=== PATIENT | female | born 1980 | race American Indian/Alaskan Native ===

== ENCOUNTER 2017-01-30 05:58 | Emergency (ER) | payer MEDICARE, MEDICAID ==
[2017-01-30 05:58] VITALS: BMI 74.9
[2017-01-30 06:27] VITALS: O2SAT 100
--- NOTE | 2017-01-30 06:56 | ED PDOC ---
HPI: General Adult Time Seen by Provider: 01/30/17 06:31 Chief Complaint (Nursing): Abdominal Pain Chief Complaint (Provider): abd pain, vaginal bleeding, fever, chills, sore throat History Per: Patient History/Exam Limitations: no limitations Onset/Duration Of Symptoms: Days Have you had recent travel within the past 21 days to any of the following countries: [place], [place], [place] or [place]?: No Current Symptoms Are (Timing): Still Present Additional Complaint(s): 36yo morbidly obese female presents to the ED for evaluation of abdominal pain, vaginal bleeding, fever, chills, sore throat for the past week. Patient is on depo shot as prescribed by party plan dealer at [place]. States bleeding has been so severe she has had to use towels to wipe up blood. Notes occasional lightheadedness. PCP: Veronica Past Medical History Reviewed: Historical Data, Nursing Documentation, Vital Signs Vital Signs: Last Vital Signs Temp 100.3 F H 01/30/17 13:16 Pulse 92 H 01/30/17 13:16 Resp 18 01/30/17 13:16 BP 107/54 L 01/30/17 13:16 Pulse Ox 100 01/30/17 13:16 - Medical History PMH: Diabetes, HTN, Hypercholesterolemia - Surgical History Surgical History: No Surg Hx - Family History Family History: States: Diabetes - Home Medications Home Medications: Ambulatory Orders Medication Instructions Recorded Ranitidine HCl [Zantac] 1 tab PO BID #40 tablet 07/12/16 Ibuprofen [Motrin] 600 mg PO Q8 PRN #21 tab 08/18/16 Ondansetron ODT [Zofran ODT] 4 mg PO Q8 PRN #12 odt 08/29/16 Aluminum Hydroxide/Magnesium H 30 ml PO Q8 #1 bottle 10/13/16 [Maalox 30 ml] Famotidine [Pepcid] 10 mg PO BID PRN #30 tab 10/13/16 Ondansetron ODT [Zofran ODT] 4 mg PO Q6 #14 odt 10/13/16 Ondansetron [Zofran] 4 mg PO Q8H #10 tab 10/17/16 Pantoprazole Sodium [Protonix] 40 mg PO DAILY #30 tablet. 10/17/16 Ferrous Sulfate [Feosol] 325 mg PO BID #21 tab 11/16/16 Hydrocortisone 1% Oint [Cortizone 30 applic TOP BID #1 tube 11/16/16 1% Oint] Ranitidine HCl [Zantac] 150 mg PO BID #20 tablet 11/16/16 Famotidine [Pepcid] 20 mg PO DAILY PRN #6 tab 01/30/17 - Allergies Allergies/Adverse Reactions: Allergies Allergy/AdvReac Type Severity Reaction Status Date / Time No Known Allergies Allergy Verified 08/29/16 19:14 Review of Systems ROS Statement: Except As Marked, All Systems Reviewed And Found Negative Constitutional: Positive for: Fever, Chills, Other (lightheadedness ) ENT: Positive for: Throat Pain Gastrointestinal: Positive for: Abdominal Pain Genitourinary Female: Positive for: Vaginal Bleeding Physical Exam - Reviewed Nursing Documentation Reviewed: Yes Vital Signs Reviewed: Yes - Physical Exam Appears: Positive for: No Acute Distress (morbidly obese ) Head Exam: Positive for: ATRAUMATIC, NORMAL INSPECTION, NORMOCEPHALIC Skin: Positive for: Normal Color, Warm, Dry Eye Exam: Positive for: EOMI, PERRL, Other (mild conjunctival pallor ) ENT: Positive for: Normal ENT Inspection Neck: Positive for: Normal, Painless ROM, Supple Cardiovascular/Chest: Positive for: Regular Rate, Rhythm. Negative for: Murmur , Tachycardia Respiratory: Positive for: Normal Breath Sounds. Negative for: Wheezing, Respiratory Distress Gastrointestinal/Abdominal: Positive for: Normal Exam, Bowel Sounds, Soft. Negative for: Tenderness Back: Positive for: Normal Inspection. Negative for: L CVA Tenderness, R CVA Tenderness Extremity: Positive for: Normal ROM. Negative for: Deformity, Swelling Neurologic/Psych: Positive for: Alert, Oriented - Laboratory Results Result Diagrams: 01/30/17 07:00 01/30/17 09:15 - ECG O2 Sat by Pulse Oximetry: 100 Pulse Ox Interpretation: Normal (RA) Medical Decision Making Medical Decision Makin: Impression: dysfunctional uterine bleeding with URI symptoms Plan: VBG Labs CXR flu swab US transvaginal reassess Patient s/o to Dr. Bridges at 0700 pending CXR, labs, US. Scribe Attestation: Documented by Arcadio Cabrera acting as a scribe for Jaden Rob MD. Provider Scribe Attestation: All medical record entries made by the Scribe were at my direction and personally dictated by me. I have reviewed the chart and agree that the record accurately reflects my personal performance of the history, physical exam, medical decision making, and the department course for this patient. I have also personally directed, reviewed, and agree with the discharge instructions and disposition. Disposition - Clinical Impression Clinical Impression: Vaginal bleeding, URI, acute - Patient ED Disposition Is Patient to be Admitted: Transfer of Care - Disposition Referrals: [facility] [Outside] - 01/31/17 Disposition: Transfer of Care Disposition Time: 07:00 Condition: STABLE Additional Instructions: Return if not better in 3 days. Prescriptions: Famotidine [Pepcid] 20 mg PO DAILY PRN #6 tab PRN Reason: Pain Instructions: Dysfunctional Uterine Bleeding (ED), Upper Respiratory Infection (ED) Forms: [facility] ED School/Work Excuse Patient Signed Over To: Matthew Bridges Handoff Comments: pending CXR, labs, US
--- NOTE | 2017-01-30 07:31 | ED PDOC ---
- Laboratory Results Result Diagrams: 01/30/17 07:00 01/30/17 09:15 - ECG O2 Sat by Pulse Oximetry: 100 (RA) Pulse Ox Interpretation: Normal - Radiology X-Ray: Interpreted by Me X-Ray Interpretation: No Acute Disease - CT Scan/US US Other Rad Studies (CT/US): Radiology Report Reviewed Other Rad Interpretation: no acute - Progress ED Course And Treament: 905: Stable. AAOx3. Breathing well. Tolerated PO. Pain stable. Hg stable. Pt. K hemolyzed. Pending repeat. \ 950: Stable. AAOx3. Pain free. Fu with pcp. Medical Decision Making Medical Decision Makin signed over to me by Arcadio Rob MD pending US, Labs, reassessment. Disposition - Clinical Impression Clinical Impression: Vaginal bleeding, URI, acute - POA Present On Arrival: None - Disposition Referrals: [facility] [Outside] - 01/31/17 Disposition: Routine/Home Disposition Time: 09:57 Condition: STABLE Additional Instructions: Return if not better in 3 days. Instructions: Upper Respiratory Infection (ED), Dysfunctional Uterine Bleeding (ED) Forms: [facility] ED School/Work Excuse Additional Comments - Additional Comments Additional Comments: Scribe Attestation: Documented by Deniz Hudson acting as a scribe for Avery Bridges MD. Provider Scribe Attestation: All medical record entries made by the Scribe were at my direction and personally dictated by me. I have reviewed the chart and agree that the record accurately reflects my personal performance of the history, physical exam, medical decision making, and the department course for this patient. I have also personally directed, reviewed, and agree with the discharge instructions and disposition.
[2017-01-30 07:38] LABS: BASO % 0.5 % (0.0-2.0); EOS % 0.2 % (0.0-4.0); HEMATOCRIT 32.9 % (34.0-47.0); LYMPH # 0.9 K/uL (1.0-4.3); LYMPH % 12.2 % (20.0-40.0); MEAN CELL VOLUME 76.3 fl (81.0-99.0); MEAN CORPUSCULAR HEMOGLOBIN 24.5 pg (27.0-31.0); MEAN CORPUSCULAR HGB CONC 32.1 g/dL (33.0-37.0); MEAN PLATELET VOLUME 8.9 fl (7.2-11.7); MONO # 0.8 K/uL (0.0-0.8); MONO % 10.7 % (0.0-10.0); NEUT # 5.7 K/uL (1.8-7.0); NEUT % 76.4 % (50.0-75.0); RED CELL DISTRIBUTION WIDTH 19.7 % (11.5-14.5); WHITE BLOOD COUNT 7.5 K/uL (4.8-10.8)
[2017-01-30 07:49] LABS: RBC URINE 576 /hpf (0-3); URINE BACTERIA OCC (<OCC); URINE BILIRUBIN NEGATIVE (NEGATIVE); URINE BLOOD LARGE (NEGATIVE); URINE COLOR YELLOW (YELLOW); URINE GLUCOSE (UA) NEG (Normal); URINE KETONE 20 mg/dL (NEGATIVE); URINE LEUKOCYTE ESTERASE NEG Leu/uL (Negative); URINE PROTEIN 30 mg/dL (NEGATIVE); URINE UROBILINOGEN 0.2-1.0 mg/dL (0.2-1.0); WBC URINE 16 /hpf (0-5)
[2017-01-30 08:11] LABS: ALB/GLOB RATIO 0.8 (1.0-2.1); ALKALINE PHOSPHATASE 62 U/L (38-126); ALT/SGPT 28 U/L (9-52); AST/SGOT 48 U/L (14-36); BILIRUBIN,TOTAL 0.8 mg/dl (0.2-1.3); BLOOD UREA NITROGEN 13 mg/dl (7-17); CALCIUM 9.1 mg/dL (8.4-10.2); CARBON DIOXIDE 22 mmol/L (22-30); CHLORIDE 102 mmol/L (98-107); GFR AFRICAN-AMERICAN > 60; GLUCOSE,RANDOM 112 mg/dL (65-105); POTASSIUM 5.5 MMOL/L (3.6-5.0); SODIUM 141 mmol/l (132-148); TOTAL PROTEIN 8.7 G/DL (6.3-8.2)
--- NOTE | 2017-01-30 10:38 | US ---
HISTORY: heavy VB COMPARISON: None available. TECHNIQUE: Transvaginal FINDINGS: UTERUS: Measures 8.8 x 6.4 x 5.8 cm. No uterine mass. ENDOMETRIUM: Measures 15 mm in diameter. Mildly irregular. Evaluation somewhat limited due to patient body habitus. . CERVIX: No cervical abnormality identified. RIGHT OVARY: Not visualized LEFT OVARY: Not visualized FREE FLUID: No significant free fluid noted. OTHER FINDINGS: None. IMPRESSION: Endometrium top-normal thickness and mildly irregular. Uncertain significance. No other significant abnormality. Ovaries not visualized. Evaluation limited due to patient body habitus.
--- NOTE | 2017-01-30 11:32 | RAD ---
HISTORY: fever, morbid obesity, r/o pna COMPARISON: No prior. FINDINGS: LUNGS: No active pulmonary disease. PLEURA: No significant pleural effusion identified, no pneumothorax apparent. CARDIOVASCULAR: Normal. OSSEOUS STRUCTURES: No significant abnormalities. VISUALIZED UPPER ABDOMEN: Normal. OTHER FINDINGS: None. IMPRESSION: No active disease.
[2017-01-30 12:15] VITALS: BP 107/54; PULSE 92; TEMP 100.3
[2017-01-30 13:18] VITALS: RESP 18
[2017-01-31 09:04] LABS: VENOUS BLOOD GAS BASE EXCESS 0.8 mmol/L (0.0-2.0); VENOUS BLOOD GAS PCO2 39 mmHg (40-60); VENOUS BLOOD PH 7.42 (7.32-7.43)
== END 2017-01-30 12:30 | disposition home or self-care (01) ==
LOC: H.ER 05:58
DX: N93.9 Abnormal uterine and vaginal bleeding, unspecified (principal); J06.9 Acute upper respiratory infection, unspecified; R10.9 Unspecified abdominal pain; J02.9 Acute pharyngitis, unspecified; R50.9 Fever, unspecified; E11.9 Type 2 diabetes mellitus without complications; E66.01 Morbid (severe) obesity due to excess calories; E78.00 Pure hypercholesterolemia, unspecified; I10 Essential (primary) hypertension; R42 Dizziness and giddiness

== ENCOUNTER 2017-09-18 20:31 | Observation (INO) | payer MEDICARE, MEDICAID ==
[2017-09-18 20:32] VITALS: BMI 74.9
--- NOTE | 2017-09-18 22:08 | ED PDOC ---
HPI: General Adult Time Seen by Provider: 09/18/17 21:36 Chief Complaint (Nursing): Anxiety History Per: Patient Additional Complaint(s): Pt. states for the past 3-4 days she's had intermittent episodes of chest tightness and feeling anxious. States symptoms occur spontaneously and resolve spontaneously. When symptoms start she feels "anxious" and her chest "clamps." Symptoms last for approximately 1-2 minutes. Further states she went to [facility] ED and informed them of symptoms but only had a urine test done which showed a UTI. Denies fever, back pain, flank pain, SI/HI, hallucinations, trauma , hemoptysis, leg pain. Past Medical History Vital Signs: Last Vital Signs Temp 99.0 F 09/18/17 21:31 Pulse 87 09/19/17 01:29 Resp 16 09/18/17 21:31 BP 139/90 09/18/17 21:31 Pulse Ox 100 09/19/17 01:29 - Medical History PMH: Diabetes, HTN, Hypercholesterolemia - Family History Family History: States: Diabetes Denies: NH, CAD - Social History Current smoker - smoking cessation education provided: No Ex-Smoker (has not smoked in the last 12 months): No Alcohol: None Drugs: Denies - Home Medications Home Medications: Ambulatory Orders Medication Instructions Recorded Ferrous Sulfate [Feosol] 325 mg PO BID #21 tab 11/16/16 Allopurinol [Zyloprim] 100 mg PO DAILY 07/26/17 Atorvastatin [Lipitor] 40 mg PO DAILY 07/26/17 Esomeprazole Magnesium [Nexium] 40 mg PO DAILY 07/26/17 Magnesium Oxide [Magnesium] 400 mg PO BID 07/26/17 Metformin ER [Glucophage XR] 750 mg PO BID 07/26/17 Silver [Silvasorb Antimicrobial 1 applic TP BID 7 Days gel 07/26/17 Wound Gel] amLODIPine [Norvasc] 1 tab PO DAILY 07/26/17 - Allergies Allergies/Adverse Reactions: Allergies Allergy/AdvReac Type Severity Reaction Status Date / Time No Known Allergies Allergy Verified 07/26/17 07:06 Review of Systems ROS Statement: Except As Marked, All Systems Reviewed And Found Negative Cardiovascular: Positive for: Chest Pain Psych: Positive for: Anxiety Physical Exam - Reviewed Nursing Documentation Reviewed: Yes Vital Signs Reviewed: Yes - Physical Exam Appears: Positive for: Well, Non-toxic, No Acute Distress Head Exam: Positive for: ATRAUMATIC, NORMAL INSPECTION, NORMOCEPHALIC Skin: Positive for: Normal Color, Warm. Negative for: Rash Eye Exam: Positive for: EOMI, Normal appearance, PERRL ENT: Positive for: Normal ENT Inspection Neck: Positive for: Normal, Painless ROM Cardiovascular/Chest: Positive for: Regular Rate, Rhythm Respiratory: Positive for: CNT, Normal Breath Sounds Gastrointestinal/Abdominal: Positive for: Normal Exam, Bowel Sounds, Soft. Negative for: Tenderness Back: Positive for: Normal Inspection Extremity: Positive for: Normal ROM, Other (R distal leg with healing superficial ulcer). Negative for: Calf Tenderness (b/l) Neurologic/Psych: Positive for: Alert, Oriented. Negative for: Aphasia, Facial Droop - Laboratory Results Result Diagrams: 09/18/17 23:26 09/18/17 23:26 - ECG ECG: Positive for: Interpreted By Me ECG Rhythm: Positive for: Sinus Rhythm. Negative for: ST/T Changes Rate: 87 O2 Sat by Pulse Oximetry: 100 - Radiology X-Ray: Interpreted by Me (CXR) - Progress ED Course And Treament: Labs ordered. ASA 324mg PO chew. EKG, CXR ordered. Pt. placed on vehicle monitor technician. Medical Decision Making Medical Decision Making: On re-evaluation, pt. reports minimal relief in pain. Due to pt's pmhx she will be placed in 23 hr tele observation. Case d/w Tarun Vidal NP, and arrangements made for 23 hr observation. Disposition - Clinical Impression Clinical Impression: Chest pain - Patient ED Disposition Is Patient to be Admitted: Yes - Disposition Disposition Time: 22:22 Condition: STABLE ASAF Risk Score for UA/NSTEMI - ASAF Risk Score Age > 64: NO 3 or more CAD Risk Factors: YES Known CAD (Stenosis greater than 50%): NO Aspirin use in past 7 days: NO Severe Angina: NO EKG ST changes greater than 0.5mm: NO Positive Cardiac Marker: NO ASAF Score: 1 % risk at 14 days of: all cause mortality, new or recurrent NH, or severe recurrent ischemia requiring urgen revascularization: 5% Wells Criteria for PE - Wells Criteria for Pulmonary Embolism Clinical Signs and Symptoms of DVT: No P.E is #1 Diagnosis, or Equally Likely: No Heart Rate >100: No Immobilization at least 3 days;Surgery previous 4 weeks: No Previous, objectively diagnosed PE or DVT: No Hemoptysis: No Malignancy w/treatment within 6 months, or palliative: No Total Score: 0
[2017-09-18 23:55] LABS: BASO # 0.1 K/uL (0.0-0.2); EOS # 0.3 K/uL (0.0-0.7); EOS % 3.6 % (0.0-4.0); HEMATOCRIT 34.5 % (34.0-47.0); LYMPH # 1.7 K/uL (1.0-4.3); LYMPH % 22.3 % (20.0-40.0); MEAN CELL VOLUME 82.6 fl (81.0-99.0); MEAN CORPUSCULAR HEMOGLOBIN 26.1 pg (27.0-31.0); MEAN CORPUSCULAR HGB CONC 31.7 g/dL (33.0-37.0); MEAN PLATELET VOLUME 8.4 fl (7.2-11.7); MONO # 0.7 K/uL (0.0-0.8); MONO % 8.9 % (0.0-10.0); NEUT # 4.9 K/uL (1.8-7.0); NEUT % 64.2 % (50.0-75.0); NRBC % 0.2 % (0.0-0.0); RED CELL DISTRIBUTION WIDTH 18.6 % (11.5-14.5); WHITE BLOOD COUNT 7.7 K/uL (4.8-10.8)
[2017-09-19 00:13] LABS: ALKALINE PHOSPHATASE 67 U/L (38-126); ALT/SGPT 36 U/L (9-52); AST/SGOT 25 U/L (14-36); BILIRUBIN,TOTAL 0.3 mg/dl (0.2-1.3); BLOOD UREA NITROGEN 18 mg/dl (7-17); CALCIUM 9.9 mg/dL (8.4-10.2); CARBON DIOXIDE 31 mmol/L (22-30); CHLORIDE 105 mmol/L (98-107); GFR AFRICAN-AMERICAN > 60; GLUCOSE,RANDOM 127 mg/dL (65-105); POTASSIUM 4.5 MMOL/L (3.6-5.0); SODIUM 142 mmol/l (132-148); TOTAL PROTEIN 8.1 G/DL (6.3-8.2)
[2017-09-19] MEDS ORDERED: Aspirin 325 mg EC Tablets PO ONE (00:13)
[2017-09-19 00:36] LABS: THYROID STIMULATING HORMONE 3.57 mIU/ML (0.46-4.68)
[2017-09-19 00:41] LABS: RBC URINE 3 /hpf (0-3); URINE BILIRUBIN NEGATIVE (NEGATIVE); URINE BLOOD MODERATE (NEGATIVE); URINE CALCIUM OXALATE CRYSTALS MANY /hpf (<OCC); URINE COLOR YELLOW (YELLOW); URINE GLUCOSE (UA) NEG (Normal); URINE KETONE NEGATIVE (NEGATIVE); URINE LEUKOCYTE ESTERASE NEG Leu/uL (Negative); URINE PROTEIN NEGATIVE (NEGATIVE); URINE UROBILINOGEN 0.2-1.0 mg/dL (0.2-1.0); WBC URINE 3 /hpf (0-5)
[2017-09-19 05:39] LABS: MEAN CELL VOLUME 82.9 fl (81.0-99.0); MEAN CORPUSCULAR HEMOGLOBIN 25.5 pg (27.0-31.0); MEAN CORPUSCULAR HGB CONC 30.8 g/dL (33.0-37.0); RED CELL DISTRIBUTION WIDTH 19.1 % (11.5-14.5); WHITE BLOOD COUNT 6.8 K/uL (4.8-10.8)
[2017-09-19 06:21] LABS: ALKALINE PHOSPHATASE 60 U/L (38-126); ALT/SGPT 34 U/L (9-52); AST/SGOT 24 U/L (14-36); BILIRUBIN,TOTAL 0.3 mg/dl (0.2-1.3); BLOOD UREA NITROGEN 16 mg/dl (7-17); CALCIUM 9.5 mg/dL (8.4-10.2); CARBON DIOXIDE 30 mmol/L (22-30); CHLORIDE 106 mmol/L (98-107); GFR AFRICAN-AMERICAN > 60; GLUCOSE,RANDOM 124 mg/dL (65-105); POTASSIUM 4.6 MMOL/L (3.6-5.0); SODIUM 142 mmol/l (132-148); TOTAL PROTEIN 7.7 G/DL (6.3-8.2)
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
[2017-09-19] MEDS ORDERED: Cholecalciferol 1,000 INTLU TAB PO SCH (09:00)
[2017-09-19] MEDS ORDERED: Naproxen 500 MG TAB PO SCH (09:00)
--- NOTE | 2017-09-19 09:25 | RAD ---
HISTORY: Chest pain. Portable study 00:47. COMPARISON: 01/30/2017. TECHNIQUE: Chest PA and lateral FINDINGS: LUNGS: No active pulmonary disease. PLEURA: No significant pleural effusion identified. No pneumothorax apparent. CARDIOVASCULAR: Cardiomegaly. No evidence of acute, significant cardiovascular disease. OSSEOUS STRUCTURES: No significant abnormalities. VISUALIZED UPPER ABDOMEN: Normal. OTHER FINDINGS: None. IMPRESSION: No active disease. No significant interval change compared to the prior examination(s).
[2017-09-19 11:50] VITALS: BP 131/75; PULSE 97; RESP 18; TEMP 98.6; O2SAT 95
[2017-09-19] MEDS ORDERED: Enoxaparin 40 mg Syringe SC SCH (12:00)
--- NOTE | 2017-09-19 12:45 | CP.PCM.CON ---
History of Present Illness - History of Present Illness History of Present Illness: I was asked to see patient by Dr Vidal. Patient is a 37 year old female with PMH HTN, hypercholesterolemia, DM and morbid obesity who presents with dyspnea. The patient was at home when she felt dyspneic at rest. She denies chest pain or palpitaitons. She presents to [facility] for furtehr mgmt. She has a diasgnosis of sleep apnea, but has not been on CPAP due to change in her living situation. Review of Systems - Constitutional Constitutional: absent: As Per HPI, Anorexia, Chills, Daytime Sleepiness, Excessive Sweating, Fatigue, Fever, Frequent Falls, Headache, Increased Appetite , Lethargy, Malaise, Night Sweats, Snoring, Sleep Apnea, Weight Gain, Weight Loss, Weakness, Other - EENT Eyes: absent: As Per HPI, Blind Spots, Blurred Vision, Change in Vision, Decreased Night Vision, Diplopia, Discharge, Dry Eye, Exophthalmos, Floaters, Irritation, Itchy Eyes, Loss of Peripheral Vision, Pain, Photophobia, Requires Corrective Lenses, Sees Flashes, Spots in Vision, Tunnel Vision, Other Visual Disturbances, Loss of Vision, Other Ears: absent: As Per HPI, Decreased Hearing, Ear Discharge, Ear Pain, Tinnitus, Abnormal Hearing, Disequilibrium, Dizziness, Other Nose/Mouth/Throat: absent: As Per HPI, Epistaxis, Nasal Congestion, Nasal Discharge, Nasal Obstruction, Nasal Trauma, Nose Pain, Post Nasal Drip, Sinus Pain, Sinus Pressure, Bleeding Gums, Change in Voice, Dental Pain, Dry Mouth, Dysphagia, Halitosis, Hoarsness, Lip Swelling, Mouth Lesions, Mouth Pain, Odynophagia, Sore Throat, Throat Swelling, Tongue Swelling, Facial Pain, Neck Pain, Neck Mass, Other - Cardiovascular Cardiovascular: absent: As Per HPI, Acrocyanosis, Chest Pain, Chest Pain at Rest , Chest Pain with Activity, Claudication, Diaphoresis, Dyspnea, Dyspnea on Exertion, Edema, Irregular Heart Rhythm, Pain Radiating to Arm/Neck/Jaw, Leg Edema, Leg Ulcers, Lightheadedness, Orthopnea, Palpitations, Paroxysmal Nocturnal Dyspnea, Pedal Edema, Radiating Pain, Rapid Heart Rate, Slow Heart Rate, Syncope, Other - Respiratory Respiratory: Dyspnea - Gastrointestinal Gastrointestinal: absent: As Per HPI, Abdominal Pain, Belching, Bloating, Change in Bowel Habits, Change in Stool Character, Coffee Ground Emesis, Constipation, Cramping, Diarrhea, Dyspepsia, Dysphagia, Early Satiety, Excessive Flatus, Fecal Incontinence, Heartburn, Hematemesis, Hematochezia, Loose Stools, Melena, Nausea, Odynophagia, Temesmus, Vomiting, Other - Genitourinary Genitourinary: absent: As Per HPI, Change in Urinary Stream, Difficulty Urinating, Dysuria, Flank Pain, Hematuria, Pyuria, Nocturia, Urinary Incontinence, Urinary Frequency, Urinary Hesitance, Urinary Urgency, Voiding Freq/Small Amts, Freq UTI, Hx Renal/Bladder Calculi, Hx /Renal Surgery, Bladder Distension, Other - Musculoskeletal Musculoskeletal: absent: As Per HPI, Abnormal Gait, Arthralgias, Atrophy, Back Pain, Deformity, Joint Swelling, Limited Range of Motion, Loss of Height, Muscle Cramps, Muscle Weakness, Myalgias, Neck Pain, Numbness, Radiating Pain into Limb, Stiffness, Tingling, Other - Integumentary Integumentary: absent: As Per HPI, Acne, Alopecia, Bleeding Lesions, Change in Hair, Change in Nails, Change in Pigmentation, Changing Lesions, Dry Skin, Erythema, Furuncle, Hirsutism, Lesions, New Lesions, Non-Healing Lesions, Photosensitivity, Pruritus, Rash, Skin Pain, Skin Ulcer, Sores, Striae, Swelling , Unusual Bruising, Wounds, Jaundice, Other - Neurological Neurological: absent: As Per HPI, Abnormal Gait, Abnormal Hearing, Abnormal Movements, Abnormal Speech, Behavioral Changes, Burning Sensations, Confusion, Convulsions, Disequilibrium, Dizziness, Numbness, Focal Weakness, Frequent Falls , Headaches, Lack of Coordination, Loss of Vision, Memory Loss, Paresthesias, Radicular Pain, Restless Legs, Sensory Deficit, Syncope, Tingling, Tremor, Vertigo, Weakness, Other Visual Disturbances, Other - Psychiatric Psychiatric: absent: As Per HPI, Abnormal Sleep Pattern, Anhedonia, Anxiety, Auditory Hallucinations, Behavioral Changes, Change in Appetite, Change in Libido, Confusion, Depression, Difficulty Concentrating, Hallucinations, Homicidal Ideation, Hopelessness, Irritability, Memory Loss, Mood Swings, Panic Attacks, Paranoia, Suicidal Ideation, Visual Hallucinations, Tactile Hallucinations, Other - Endocrine Endocrine: absent: As Per HPI, Change in Body Appearance, Change in Libido, Cold Intolorance, Deepening of Voice, Excessive Sweating, Fatigue, Flushing, Heat Intolorance, Increase in Ring/Shoe/Hat Size, Palpitations, Polydipsia, Polyphagia, Polyuria, Other - Hematologic/Lymphatic Hematologic: absent: As Per HPI, Easy Bleeding, Easy Bruising, Lymphadenopathy, Other Past Patient History - Past Medical History & Family History Past Medical History?: Yes - Past Social History Smoking Status: Never Smoked - CARDIAC Hx Cardiac Disorders: Yes Hx Hypercholesterolemia: Yes Hx Hypertension: Yes - PULMONARY Hx Respiratory Disorders: No - NEUROLOGICAL Hx Neurological Disorder: No - HEENT Hx HEENT Problems: No - RENAL Hx Chronic Kidney Disease: No - ENDOCRINE/METABOLIC Hx Endocrine Disorders: Yes Hx Diabetes Mellitus Type 2: Yes - HEMATOLOGICAL/ONCOLOGICAL Hx Blood Disorders: No - INTEGUMENTARY Hx Dermatological Problems: No - MUSCULOSKELETAL/RHEUMATOLOGICAL Hx Musculoskeletal Disorders: No Hx Falls: No - GASTROINTESTINAL Hx Gastrointestinal Disorders: Yes Hx Gastroesophageal Reflux: Yes - GENITOURINARY/GYNECOLOGICAL Hx Genitourinary Disorders: No - PSYCHIATRIC Hx Psychophysiologic Disorder: No Hx Substance Use: No - SURGICAL HISTORY Hx Surgeries: Yes Hx Arthroscopy: Yes (left knee) Other/Comment: bilateral knee surgery, bilateral upper eyelid surgery - ANESTHESIA Hx Anesthesia: Yes Hx Anesthesia Reactions: No Meds Allergies/Adverse Reactions: Allergies Allergy/AdvReac Type Severity Reaction Status Date / Time No Known Allergies Allergy Verified 07/26/17 07:06 - Medications Medications: Current Medications Allopurinol (Zyloprim) 100 mg PO DAILY [facility] Last Admin: 09/19/17 08:51 Dose: 100 mg Amlodipine Besylate (Norvasc) 5 mg PO DAILY [facility] Last Admin: 09/19/17 09:06 Dose: 5 mg Aspirin (Aspirin Chewable) 81 mg PO DAILY [facility] Last Admin: 09/19/17 09:08 Dose: 81 mg Atorvastatin Calcium (Lipitor) 40 mg PO [facility] Cholecalciferol (Vitamin D) 2,000 iu PO DAILY [facility] Last Admin: 09/19/17 08:51 Dose: 2,000 iu Enoxaparin Sodium (Lovenox) 40 mg SC DAILY [facility] PRN Reason: Protocol Famotidine (Pepcid) 20 mg PO DAILY [facility] Last Admin: 09/19/17 09:05 Dose: 20 mg Gabapentin (Neurontin) 100 mg PO DAILY [facility] Last Admin: 09/19/17 08:51 Dose: 100 mg Ibuprofen (Motrin Oral Susp) 200 mg PO Q6 PRN PRN Reason: Pain, moderate (4-7) Metformin HCl (Glucophage) 500 mg PO BID [facility] Last Admin: 09/19/17 08:52 Dose: 500 mg Naproxen (Naproxen) 500 mg PO BID [facility] Last Admin: 09/19/17 08:49 Dose: 500 mg Tramadol HCl (Ultram) 50 mg PO Q6 PRN PRN Reason: Pain, moderate (4-7) Valsartan (Diovan) 80 mg PO DAILY [facility] Last Admin: 09/19/17 08:50 Dose: 80 mg Physical Exam - Constitutional Appears: Non-toxic - Head Exam Head Exam: NORMAL INSPECTION - Eye Exam Eye Exam: Normal appearance - ENT Exam ENT Exam: Mucous Membranes Moist - Neck Exam Neck exam: Positive for: Normal Inspection - Respiratory Exam Respiratory Exam: NORMAL BREATHING PATTERN - Cardiovascular Exam Cardiovascular Exam: REGULAR RHYTHM - GI/Abdominal Exam GI & Abdominal Exam: Normal Bowel Sounds - Rectal Exam Rectal Exam: Deferred - Extremities Exam Extremities exam: Negative for: pedal edema - Back Exam Back exam: NORMAL INSPECTION - Neurological Exam Neurological exam: Alert, Oriented x3 - Psychiatric Exam Psychiatric exam: Normal Affect - Skin Skin Exam: Normal Color Results - Vital Signs Recent Vital Signs: Last Vital Signs Temp 98.6 F 09/19/17 11:50 Pulse 97 H 09/19/17 11:50 Resp 18 09/19/17 11:50 BP 131/75 09/19/17 11:50 Pulse Ox 95 09/19/17 11:50 - Labs Result Diagrams: 09/19/17 05:15 09/19/17 05:15 Labs: Laboratory Results - last 24 hr 09/18/17 09/18/17 09/18/17 22:27 23:26 23:26 WBC 7.7 RBC 4.17 Hgb 10.9 L Hct 34.5 MCV 82.6 D MCH 26.1 L MCHC 31.7 L RDW 18.6 H Plt Count 226 MPV 8.4 Neut % (Auto) 64.2 Lymph % (Auto) 22.3 Burnett % (Auto) 8.9 Eos % (Auto) 3.6 Baso % (Auto) 1.0 Neut # 4.9 Lymph # 1.7 Burnett # 0.7 Eos # 0.3 Baso # 0.1 Sodium 142 Potassium 4.5 Chloride 105 Carbon Dioxide 31 H Anion Gap 11 BUN 18 H Creatinine 0.8 Est GFR ( Amer) > 60 Est GFR (Non-Af Amer) > 60 POC Glucose (mg/dL) 118 H Random Glucose 127 H Calcium 9.9 Total Bilirubin 0.3 AST 25 ALT 36 Alkaline Phosphatase 67 Troponin I < 0.0120 NT-Pro-B Natriuret Pep 36.7 Total Protein 8.1 Albumin 4.0 Globulin 4.1 H Albumin/Globulin Ratio 1.0 TSH 3rd Generation 3.57 Urine Color Urine Clarity Urine pH Ur Specific [place] Urine Protein Urine Glucose (UA) Urine Ketones Urine Blood Urine Nitrate Urine Bilirubin Urine Urobilinogen Ur Leukocyte Esterase Urine RBC (Auto) Urine Microscopic WBC Ur Squamous Epith Cells Calcium Oxalate Crystal 09/19/17 09/19/17 09/19/17 00:04 05:15 05:15 WBC 6.8 RBC 4.10 Hgb 10.5 L Hct 34.0 MCV 82.9 MCH 25.5 L MCHC 30.8 L RDW 19.1 H Plt Count 227 MPV Neut % (Auto) Lymph % (Auto) Burnett % (Auto) Eos % (Auto) Baso % (Auto) Neut # Lymph # Burnett # Eos # Baso # Sodium 142 Potassium 4.6 Chloride 106 Carbon Dioxide 30 Anion Gap 11 BUN 16 Creatinine 0.7 Est GFR ( Amer) > 60 Est GFR (Non-Af Amer) > 60 POC Glucose (mg/dL) Random Glucose 124 H Calcium 9.5 Total Bilirubin 0.3 AST 24 ALT 34 Alkaline Phosphatase 60 Troponin I < 0.0120 NT-Pro-B Natriuret Pep Total Protein 7.7 Albumin 3.9 Globulin 3.8 Albumin/Globulin Ratio 1.0 TSH 3rd Generation Urine Color Yellow Urine Clarity Cloudy Urine pH 5.0 Ur Specific [place] 1.029 Urine Protein Negative Urine Glucose (UA) Neg Urine Ketones Negative Urine Blood Moderate Urine Nitrate Negative Urine Bilirubin Negative Urine Urobilinogen 0.2-1.0 Ur Leukocyte Esterase Neg Urine RBC (Auto) 3 Urine Microscopic WBC 3 Ur Squamous Epith Cells 2 Calcium Oxalate Crystal Many H 09/19/17 09/19/17 09/19/17 05:46 10:40 11:45 WBC RBC Hgb Hct MCV MCH MCHC RDW Plt Count MPV Neut % (Auto) Lymph % (Auto) Burnett % (Auto) Eos % (Auto) Baso % (Auto) Neut # Lymph # Burnett # Eos # Baso # Sodium Potassium Chloride Carbon Dioxide Anion Gap BUN Creatinine Est GFR ( Amer) Est GFR (Non-Af Amer) POC Glucose (mg/dL) 115 H 141 H Random Glucose Calcium Total Bilirubin AST ALT Alkaline Phosphatase Troponin I < 0.0120 NT-Pro-B Natriuret Pep Total Protein Albumin Globulin Albumin/Globulin Ratio TSH 3rd Generation Urine Color Urine Clarity Urine pH Ur Specific [place] Urine Protein Urine Glucose (UA) Urine Ketones Urine Blood Urine Nitrate Urine Bilirubin Urine Urobilinogen Ur Leukocyte Esterase Urine RBC (Auto) Urine Microscopic WBC Ur Squamous Epith Cells Calcium Oxalate Crystal - EKG Data EKG Interpreted by: Myself Assessment & Plan (1) Dyspnea Assessment and Plan: cardiac enzymes are negative. likely not cardiac in origin. recommend conservative medical therapy. blood pressure control and cardiac risk factor modification. Status: Acute (2) HTN (hypertension) Assessment and Plan: blood pressure control Status: Acute (3) Diabetes Assessment and Plan: monitor blood sugar. Status: Acute
--- NOTE | 2017-09-19 16:37 | CP.PCM.DIS ---
Provider - Provider Date of Admission: 09/19/17 00:53 Attending physician: Maddy Venegas MD Consults: 09/19/17 05:08 Nursing Referral for Wound Care Routine Comment: screen Physician Instructions: Reason For Exam: right lower rahman diabetic wound Time Spent in preparation of Discharge (in minutes): 15 Diagnosis - Discharge Diagnosis (1) Morbid obesity due to excess calories Status: Acute (2) DVT prophylaxis Status: Acute (3) Chest pain Status: Acute (4) Anxiety Status: Acute Hospital Course - Lab Results Lab Results: Most Recent Lab Values WBC 6.8 K/uL (4.8-10.8) 09/19/17 05:15 RBC 4.10 Mil/uL (3.80-5.20) 09/19/17 05:15 Hgb 10.5 g/dL (12.0-16.0) L 09/19/17 05:15 Hct 34.0 % (34.0-47.0) 09/19/17 05:15 MCV 82.9 fl (81.0-99.0) 09/19/17 05:15 MCH 25.5 pg (27.0-31.0) L 09/19/17 05:15 MCHC 30.8 g/dL (33.0-37.0) L 09/19/17 05:15 RDW 19.1 % (11.5-14.5) H 09/19/17 05:15 Plt Count 227 K/uL (130-400) 09/19/17 05:15 MPV 8.4 fl (7.2-11.7) 09/18/17 23:26 Neut % (Auto) 64.2 % (50.0-75.0) 09/18/17 23:26 Lymph % (Auto) 22.3 % (20.0-40.0) 09/18/17 23:26 Sawyer % (Auto) 8.9 % (0.0-10.0) 09/18/17 23:26 Eos % (Auto) 3.6 % (0.0-4.0) 09/18/17 23:26 Baso % (Auto) 1.0 % (0.0-2.0) 09/18/17 23:26 Neut # 4.9 K/uL (1.8-7.0) 09/18/17 23:26 Lymph # 1.7 K/uL (1.0-4.3) 09/18/17 23:26 Sawyer # 0.7 K/uL (0.0-0.8) 09/18/17 23:26 Eos # 0.3 K/uL (0.0-0.7) 09/18/17 23:26 Baso # 0.1 K/uL (0.0-0.2) 09/18/17 23:26 Sodium 142 mmol/l (132-148) 09/19/17 05:15 Potassium 4.6 MMOL/L (3.6-5.0) 09/19/17 05:15 Chloride 106 mmol/L (98-107) 09/19/17 05:15 Carbon Dioxide 30 mmol/L (22-30) 09/19/17 05:15 Anion Gap 11 (10-20) 09/19/17 05:15 BUN 16 mg/dl (7-17) 09/19/17 05:15 Creatinine 0.7 mg/dl (0.7-1.2) 09/19/17 05:15 Est GFR ( Amer) > 60 09/19/17 05:15 Est GFR (Non-Af Amer) > 60 09/19/17 05:15 POC Glucose (mg/dL) 141 mg/dL (65-110) H 09/19/17 10:40 Random Glucose 124 mg/dL (65-105) H 09/19/17 05:15 Calcium 9.5 mg/dL (8.4-10.2) 09/19/17 05:15 Total Bilirubin 0.3 mg/dl (0.2-1.3) 09/19/17 05:15 AST 24 U/L (14-36) 09/19/17 05:15 ALT 34 U/L (9-52) 09/19/17 05:15 Alkaline Phosphatase 60 U/L (38-126) 09/19/17 05:15 Troponin I < 0.0120 ng/mL (0.00-0.120) 09/19/17 11:45 NT-Pro-B Natriuret Pep 36.7 pg/ml (0-450) 09/18/17 23:26 Total Protein 7.7 G/DL (6.3-8.2) 09/19/17 05:15 Albumin 3.9 g/dL (3.5-5.0) 09/19/17 05:15 Globulin 3.8 gm/dL (2.2-3.9) 09/19/17 05:15 Albumin/Globulin Ratio 1.0 (1.0-2.1) 09/19/17 05:15 TSH 3rd Generation 3.57 mIU/ML (0.46-4.68) 09/18/17 23:26 Urine Color Yellow (YELLOW) 09/19/17 00:04 Urine Clarity Cloudy (Clear) 09/19/17 00:04 Urine pH 5.0 (5.0-8.0) 09/19/17 00:04 Ur Specific [place] 1.029 (1.003-1.030) 09/19/17 00:04 Urine Protein Negative mg/dL (NEGATIVE) 09/19/17 00:04 Urine Glucose (UA) Neg mg/dL (Normal) 09/19/17 00:04 Urine Ketones Negative mg/dL (NEGATIVE) 09/19/17 00:04 Urine Blood Moderate (NEGATIVE) 09/19/17 00:04 Urine Nitrate Negative (NEGATIVE) 09/19/17 00:04 Urine Bilirubin Negative (NEGATIVE) 09/19/17 00:04 Urine Urobilinogen 0.2-1.0 mg/dL (0.2-1.0) 09/19/17 00:04 Ur Leukocyte Esterase Neg Mikhail/uL (Negative) 09/19/17 00:04 Urine RBC (Auto) 3 /hpf (0-3) 09/19/17 00:04 Urine Microscopic WBC 3 /hpf (0-5) 09/19/17 00:04 Ur Squamous Epith Cells 2 /hpf (0-5) 09/19/17 00:04 Calcium Oxalate Crystal Many /hpf (<OCC) H 09/19/17 00:04 Discharge Exam - Head Exam Head Exam: NORMAL INSPECTION Discharge Plan - Discharge Medications Prescriptions: Aspirin [Aspirin Chewable] 81 mg PO DAILY #30 chew - Follow Up Plan Condition: STABLE Disposition: HOME/ ROUTINE Instructions: Chest Pain (DC) Additional Instructions: pt ccleared by cardio fro dc. no complaitns. vs noted. f/u rmg in am, rted prn, med sper med rec f/u [facility] for wound care rle final dx-cp, anxiety, rle wound
--- NOTE | 2017-09-19 19:04 | CARD ---
APPROVED REPORT EKG Measurement Heart [id number] <Conclusion> Normal sinus rhythm Normal ECG
== END 2017-09-19 16:23 | disposition home or self-care (01) ==
LOC: H.ER 20:31 → H.ERHOLD 09-19 00:53 → H.TEL 09-19 04:46
PROVIDERS: ADMIT Family Medicine; ATTEND Family Medicine
DX: R07.9 Chest pain, unspecified (principal); E66.01 Morbid (severe) obesity due to excess calories; Z68.45 Body mass index [BMI] 70 or greater, adult; F41.9 Anxiety disorder, unspecified; S81.801A Unspecified open wound, right lower leg, initial encounter; E11.9 Type 2 diabetes mellitus without complications; I10 Essential (primary) hypertension; E78.00 Pure hypercholesterolemia, unspecified; G47.30 Sleep apnea, unspecified
CPT/HCPCS: 36415; 71020; 80053; 81003; 81025; 82948; 83880; 84443; 84484; 85025; 85027; 93005; 96372; 99282; G0378; J1650

== ENCOUNTER 2017-09-20 20:18 | Emergency (ER) | payer MEDICARE, MEDICAID ==
[2017-09-20 20:19] VITALS: BMI 74.9
[2017-09-20 20:24] VITALS: TEMP 98.1; O2SAT 99
[2017-09-20 21:12] VITALS: RESP 18
[2017-09-20] MEDS ORDERED: Naproxen 500 MG TAB PO ONE ×2 (21:14→21:30)
--- NOTE | 2017-09-20 21:21 | ED PDOC ---
HPI: General Adult Time Seen by Provider: 09/20/17 20:35 Chief Complaint (Nursing): Shortness Of Breath History Per: Patient (She is a 37 yo undomiciled female who presents because epigastric discomfort that started after she ate a tomato inadvertantly that was inside a sandwich.) Past Medical History Reviewed: Historical Data, Nursing Documentation, Vital Signs Vital Signs: Last Vital Signs Temp 98.1 F 09/20/17 20:19 Pulse 100 H 09/20/17 20:19 Resp 18 09/20/17 21:10 BP 125/101 H 09/20/17 20:19 Pulse Ox 99 09/20/17 21:22 - Medical History PMH: Diabetes, HTN, Hypercholesterolemia Denies: Chronic Kidney Disease - Surgical History Surgical History: No Surg Hx - Family History Family History: States: Diabetes Denies: [place], CAD - Living Arrangements Living Arrangements: Alone - Social History Current smoker - smoking cessation education provided: No - Home Medications Home Medications: Ambulatory Orders Medication Instructions Recorded Metformin ER [Glucophage XR] 750 mg PO BID 07/26/17 amLODIPine [Norvasc] 5 mg PO DAILY 07/26/17 Allopurinol [Zyloprim] 100 mg PO DAILY 09/19/17 Aspirin [Aspirin Chewable] 81 mg PO DAILY #30 chew 09/19/17 Atorvastatin [Lipitor] 40 mg PO HS 09/19/17 Cholecalciferol [Vitamin D 1000 IU] 2,000 iu PO DAILY 09/19/17 Famotidine [Pepcid] 20 mg PO DAILY 09/19/17 Gabapentin [Neurontin] 100 mg PO DAILY 09/19/17 Ibuprofen [Motrin Tab] 200 mg PO Q6 PRN 09/19/17 Naproxen [Naprosyn] 500 mg PO BID 09/19/17 Valsartan [Diovan] 80 mg PO DAILY 09/19/17 traMADol [Ultram] 50 mg PO Q6 PRN 09/19/17 - Allergies Allergies/Adverse Reactions: Allergies Allergy/AdvReac Type Severity Reaction Status Date / Time No Known Allergies Allergy Verified 07/26/17 07:06 Review of Systems ROS Statement: Except As Marked, All Systems Reviewed And Found Negative Constitutional: Negative for: Fever ENT: Negative for: Ear Pain, Nose Pain Cardiovascular: Negative for: Chest Pain Respiratory: Negative for: Cough, Hemoptysis Gastrointestinal: Negative for: Vomiting Physical Exam - Reviewed Nursing Documentation Reviewed: Yes Vital Signs Reviewed: Yes - Physical Exam Appears: Positive for: Well, Non-toxic, No Acute Distress Head Exam: Positive for: ATRAUMATIC, NORMAL INSPECTION, NORMOCEPHALIC Skin: Positive for: Normal Color, Warm, DRY Eye Exam: Positive for: EOMI, Normal appearance, PERRL ENT: Positive for: Normal ENT Inspection Neck: Positive for: Normal, Painless ROM Cardiovascular/Chest: Positive for: Regular Rate, Rhythm Respiratory: Positive for: CNT, Normal Breath Sounds Gastrointestinal/Abdominal: Positive for: Normal Exam, Bowel Sounds, Soft Back: Positive for: Normal Inspection Extremity: Positive for: Normal ROM Neurologic/Psych: Positive for: Alert, Oriented - ECG O2 Sat by Pulse Oximetry: 99 Disposition - Clinical Impression Clinical Impression: Dyspepsia - Patient ED Disposition Is Patient to be Admitted: No Doctor Will See Patient In The: Office Counseled Patient/Family Regarding: Diagnosis, Need For Followup - Disposition Disposition: Routine/Home Disposition Time: 23:10 Condition: STABLE Instructions: Chronic Indigestion (ED) Forms: [facility] (Azeri) - POA Present On Arrival: None
[2017-09-21 05:02] VITALS: BP 117/64; PULSE 82
== END 2017-09-21 06:28 | disposition home or self-care (01) ==
LOC: H.ER 20:18
DX: F20.9 Schizophrenia, unspecified (principal); E11.9 Type 2 diabetes mellitus without complications; Z79.84 Long term (current) use of oral hypoglycemic drugs; E78.00 Pure hypercholesterolemia, unspecified; I10 Essential (primary) hypertension; Z79.82 Long term (current) use of aspirin

== ENCOUNTER 2017-09-21 16:29 | Emergency (ER) | payer MEDICARE, MEDICAID ==
[2017-09-21 16:30] VITALS: BMI 74.9
[2017-09-21 16:44] VITALS: BP 137/71; PULSE 104; RESP 16; TEMP 98.9; O2SAT 97
[2017-09-21 17:53] LABS: BASO # 0.1 K/uL (0.0-0.2); BASO % 0.7 % (0.0-2.0); EOS # 0.3 K/uL (0.0-0.7); EOS % 3.8 % (0.0-4.0); LYMPH # 1.5 K/uL (1.0-4.3); LYMPH % 20.7 % (20.0-40.0); MEAN CELL VOLUME 83.3 fl (81.0-99.0); MEAN CORPUSCULAR HEMOGLOBIN 25.7 pg (27.0-31.0); MEAN CORPUSCULAR HGB CONC 30.8 g/dL (33.0-37.0); MEAN PLATELET VOLUME 8.4 fl (7.2-11.7); MONO # 0.6 K/uL (0.0-0.8); MONO % 8.4 % (0.0-10.0); NEUT # 4.8 K/uL (1.8-7.0); NEUT % 66.4 % (50.0-75.0); NRBC % 0.3 % (0.0-0.0); RED CELL DISTRIBUTION WIDTH 19.3 % (11.5-14.5); WHITE BLOOD COUNT 7.2 K/uL (4.8-10.8)
--- NOTE | 2017-09-21 18:03 | ED PDOC ---
HPI: Abdomen Time Seen by Provider: 09/21/17 16:48 Chief Complaint (Nursing): Abdominal Pain Chief Complaint (Provider): Vomiting History Per: Patient History/Exam Limitations: no limitations Onset/Duration Of Symptoms: Days (2 days ago) Current Symptoms Are (Timing): Still Present Additional Complaint(s): 37 y/o undomiciled female with a past medical history of depression, presents to the ED complaining of vomiting, with an onset of 2 days ago. Patient was seen yesterday in the ED for epigastric discomfort and intermittent vomiting. She was then given Pepcid and began to feel better. On the other hand, today she has been experiencing some intractable vomiting cannot keep anything down. She denies of any bilious or bloody vomit, hallucinations, homicidal or suicidal ideation, but has been experiencing some chills. Of note, she reports of having panic attacks especially when on the bus to [facility] [place]. Past Medical History Reviewed: Historical Data Vital Signs: Last Vital Signs Temp 98.9 F 09/21/17 16:41 Pulse 104 H 09/21/17 16:41 Resp 16 09/21/17 16:41 BP 137/71 09/21/17 16:41 Pulse Ox 97 09/21/17 23:13 - Medical History PMH: Anemia, Diabetes, HTN, Hypercholesterolemia Denies: Chronic Kidney Disease - Surgical History Surgical History: No Surg Hx - Family History Family History: States: Diabetes Denies: [place], CAD - Social History Current smoker - smoking cessation education provided: No Alcohol: None Drugs: Denies - Home Medications Home Medications: Ambulatory Orders Medication Instructions Recorded Metformin ER [Glucophage XR] 750 mg PO BID 07/26/17 amLODIPine [Norvasc] 5 mg PO DAILY 07/26/17 Allopurinol [Zyloprim] 100 mg PO DAILY 09/19/17 Aspirin [Aspirin Chewable] 81 mg PO DAILY #30 chew 09/19/17 Atorvastatin [Lipitor] 40 mg PO HS 09/19/17 Cholecalciferol [Vitamin D 1000 IU] 2,000 iu PO DAILY 09/19/17 Famotidine [Pepcid] 20 mg PO DAILY 09/19/17 Gabapentin [Neurontin] 100 mg PO DAILY 09/19/17 Ibuprofen [Motrin Tab] 200 mg PO Q6 PRN 09/19/17 Naproxen [Naprosyn] 500 mg PO BID 09/19/17 Valsartan [Diovan] 80 mg PO DAILY 09/19/17 traMADol [Ultram] 50 mg PO Q6 PRN 09/19/17 Ondansetron ODT [Zofran ODT] 1 odt PO Q6 PRN #20 odt 09/21/17 hydrOXYzine HCl [Atarax] 25 mg PO BID PRN #10 tab 09/21/17 - Allergies Allergies/Adverse Reactions: Allergies Allergy/AdvReac Type Severity Reaction Status Date / Time No Known Allergies Allergy Verified 07/26/17 07:06 Review of Systems ROS Statement: Except As Marked, All Systems Reviewed And Found Negative Constitutional: Positive for: Chills. Negative for: Fever Gastrointestinal: Positive for: Vomiting. Negative for: Hematemesis, Other ( Bilious vomit) Physical Exam - Reviewed Nursing Documentation Reviewed: Yes Vital Signs Reviewed: Yes - Physical Exam Appears: Positive for: Non-toxic Head Exam: Positive for: ATRAUMATIC Skin: Positive for: Normal Color, Warm Cardiovascular/Chest: Positive for: Regular Rate, Rhythm. Negative for: Murmur Respiratory: Positive for: Normal Breath Sounds. Negative for: Respiratory Distress Gastrointestinal/Abdominal: Positive for: Normal Exam, Soft. Negative for: Tenderness Neurologic/Psych: Positive for: Alert, Oriented. Negative for: Motor/Sensory Deficits - Laboratory Results Result Diagrams: 09/21/17 17:44 09/21/17 17:50 - ECG O2 Sat by Pulse Oximetry: 97 (RA) Pulse Ox Interpretation: Normal Medical Decision Making Medical Decision Making: Time: --17:11 Impression: --37 y/o female with vomiting and anxiety Plan: --ED Udip --ED Urine --Zofran 8mg IV --IV Insertion Reassess --06:32 no clinically significant lab abnormalities, will attempt a PO challenge 2300 Evaluated by Una Valderrama Attestation: Documented by Alfredito Clark acting as a scribe for Lizbeth Hawkins MD. Disposition - Clinical Impression Clinical Impression: Anxiety Counseled Patient/Family Regarding: Studies Performed, Diagnosis, Need For Followup, Rx Given - Disposition Referrals: [facility] [Outside] Disposition: Routine/Home Disposition Time: 23:13 Condition: STABLE Prescriptions: hydrOXYzine HCl [Atarax] 25 mg PO BID PRN #10 tab PRN Reason: Anxiety Ondansetron ODT [Zofran ODT] 1 odt PO Q6 PRN #20 odt PRN Reason: Nausea/Vomiting Instructions: Anxiety (ED), Acute Nausea and Vomiting (ED)
[2017-09-21 18:05] LABS: ALKALINE PHOSPHATASE 81 U/L (38-126); ALT/SGPT 37 U/L (9-52); AST/SGOT 24 U/L (14-36); BILIRUBIN,TOTAL 0.4 mg/dl (0.2-1.3); BLOOD UREA NITROGEN 15 mg/dl (7-17); CARBON DIOXIDE 28 mmol/L (22-30); CHLORIDE 105 mmol/L (98-107); GFR AFRICAN-AMERICAN > 60; GLUCOSE,RANDOM 160 mg/dL (65-105); LIPASE 71 U/L (23-300); MAGNESIUM 1.8 MG/DL (1.6-2.3); PHOSPHOROUS 3.2 mg/dl (2.5-4.5); POTASSIUM 4.6 MMOL/L (3.6-5.0); SODIUM 142 mmol/l (132-148); TOTAL PROTEIN 8.5 G/DL (6.3-8.2)
== END 2017-09-22 00:05 | disposition home or self-care (01) ==
LOC: H.ER 16:29
DX: R11.10 Vomiting, unspecified (principal); F41.9 Anxiety disorder, unspecified; E11.9 Type 2 diabetes mellitus without complications; Z79.84 Long term (current) use of oral hypoglycemic drugs; E78.00 Pure hypercholesterolemia, unspecified; I10 Essential (primary) hypertension; Z79.82 Long term (current) use of aspirin
CPT/HCPCS: 80053; 81025; 83690; 83735; 84100; 85025; 96374; 99284; J2405

== ENCOUNTER 2018-11-23 07:36 | Emergency (ER) | payer MEDICARE, MEDICAID ==
[2018-11-23 07:39] VITALS: BMI 79.6
[2018-11-23 07:41] VITALS: RESP 20
[2018-11-23 09:28] LABS: BASO % 0.8 % (0.0-2.0); EOS # 0.2 K/uL (0.0-0.7); EOS % 3.5 % (0.0-4.0); HEMOGLOBIN 12.2 g/dL (12.0-16.0); LYMPH # 1.5 K/uL (1.0-4.3); LYMPH % 24.3 % (20.0-40.0); MEAN CELL VOLUME 81.4 fl (81.0-99.0); MEAN CORPUSCULAR HEMOGLOBIN 25.6 pg (27.0-31.0); MEAN CORPUSCULAR HGB CONC 31.4 g/dL (33.0-37.0); MONO # 0.5 K/uL (0.0-0.8); MONO % 8.6 % (0.0-10.0); NEUT # 3.8 K/uL (1.8-7.0); NEUT % 62.8 % (50.0-75.0); NRBC % 0.2 % (0.0-0.0); RBC 4.79 Mil/uL (3.80-5.20); RED CELL DISTRIBUTION WIDTH 18.1 % (11.5-14.5); WHITE BLOOD COUNT 6.1 K/uL (4.8-10.8)
[2018-11-23 09:49] LABS: BLOOD UREA NITROGEN 12 mg/dl (7-17); GFR NON-AFRICAN AMERICAN > 60
--- NOTE | 2018-11-23 09:51 | ED PDOC ---
Lower Extremity Pain/Injury Time Seen by Provider: 11/23/18 08:39 Chief Complaint (Nursing): Lower Extremity Problem/Injury Chief Complaint (Provider): Lower Extremity Problem/Injury History Per: Patient History/Exam Limitations: no limitations Onset/Duration Of Symptoms: Days Current Symptoms Are (Timing): Still Present Additional Complaint(s): Patient is a 38 y/o morbidly obese female with a PMHx of anemia, HTN, hypercholesterolemia, and diabetes who presents to the ED for evaluation of chronic bilateral leg ulcers and wounds that present open drainage to the right lower extremity. Patient has been unable to see PCP but had visited nurse who advised ED visit. Patient habitus has been unable to care for own wounds or evaluate extent of wounds. Of note, patient denies fever. PCP: None Provided Past Medical History Reviewed: Historical Data, Nursing Documentation, Vital Signs Vital Signs: Last Vital Signs Temp 98.6 F 11/23/18 07:40 Pulse 88 11/23/18 07:40 Resp 20 11/23/18 07:40 BP 178/90 H 11/23/18 07:40 Pulse Ox 97 11/23/18 07:40 - Medical History PMH: Anemia, Diabetes, HTN, Hypercholesterolemia Denies: Chronic Kidney Disease, Seizures, Sexually Transmitted Disease - Surgical History Surgical History: No Surg Hx - Family History Family History: States: Diabetes - Home Medications Home Medications: Ambulatory Orders Medication Instructions Recorded Allopurinol [Zyloprim] 100 mg PO DAILY #14 tab 07/03/18 Aspirin [Aspirin Chewable] 81 mg PO DAILY #14 chew 07/03/18 Atorvastatin [Lipitor] 40 mg PO HS #14 tab 07/03/18 Cholecalciferol [Vitamin D 1000 IU] 2,000 iu PO DAILY #14 tab 07/03/18 Famotidine [Pepcid] 40 mg PO DAILY #14 tab 07/03/18 Gabapentin [Neurontin] 100 mg PO BID #28 cap 07/03/18 Ibuprofen [Motrin Tab] 400 mg PO Q8H PRN #30 tab 07/03/18 Losartan [Cozaar] 50 mg PO DAILY #14 tab 07/03/18 MetFORMIN ER [Glucophage XR] 750 mg PO DAILY #14 ter 07/03/18 Vitamin A & D [Vitamin A & D Oint 1 ea TOP BID #14 fp 07/03/18 UD Foilpak] amLODIPine [Norvasc] 5 mg PO DAILY #14 tab 07/03/18 - Allergies Allergies/Adverse Reactions: Allergies Allergy/AdvReac Type Severity Reaction Status Date / Time No Known Allergies Allergy Verified 06/24/18 12:16 Review of Systems ROS Statement: Except As Marked, All Systems Reviewed And Found Negative Constitutional: Negative for: Fever Gastrointestinal: Positive for: Nausea Musculoskeletal: Positive for: Other (chronic bilateral leg ulcers and wound care with open draining wound to the right lower extremity) Physical Exam - Reviewed Nursing Documentation Reviewed: Yes Vital Signs Reviewed: Yes - Physical Exam Appears: Positive for: No Acute Distress Head Exam: Positive for: ATRAUMATIC, NORMAL INSPECTION, NORMOCEPHALIC Skin: Positive for: Normal Color, Warm, Dry Eye Exam: Positive for: EOMI, Normal appearance, PERRL Neck: Positive for: Normal, Painless ROM, Supple Cardiovascular/Chest: Positive for: Regular Rate, Rhythm. Negative for: Murmur Respiratory: Positive for: Normal Breath Sounds. Negative for: Respiratory Distress Gastrointestinal/Abdominal: Positive for: Normal Exam, Soft. Negative for: Tenderness Extremity: Positive for: Normal ROM, Other (anterior ankle erythamtous with skin break down with clear fluid drainage; no active bleeding or area of fluctuance; por hygeine to feet bilaterally with overgrown toenails ) Neurologic/Psych: Positive for: Alert, Oriented. Negative for: Motor/Sensory Deficits - Laboratory Results Result Diagrams: 11/23/18 09:15 11/23/18 09:15 - ECG O2 Sat by Pulse Oximetry: 97 (RA) Pulse Ox Interpretation: Normal Medical Decision Making Medical Decision Making: Time: 914 Impression: Worsening of chronic wounds to right ankle Plan: Workup for Infection BMP Podiatry Consult CBC Reassess Time: 924 Spoke with podiatry resident, James, who will evaluate patient when he arrives here from [place]. 1300 Pt seen by psychiatry. 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 Return parameters discussed. Time: 1340 On discharge patient complains of bugs/eggs in hair. No bugs visualized. Possible lice eggs, Prescription for Permethrin cream given. Followup with PCP. Scribe Attestation: Documented by Carlos Blackman, acting as a scribe for Jacy Jimenez MD. Provider Scribe Attestation: All medical record entries made by the Scribe were at my direction and personally dictated by me. I have reviewed the chart and agree that the record accurately reflects my personal performance of the history, physical exam, medical decision making, and the department course for this patient. I have also personally directed, reviewed, and agree with the discharge instructions and disposition. Disposition - Clinical Impression Clinical Impression: Ulcer, Encounter for wound care - Patient ED Disposition Is Patient to be Admitted: No - Disposition Disposition: Routine/Home Disposition Time: 13:07 Condition: STABLE Additional Instructions: Follow up with Dr. Mioxn at the [facility]. Follow up with primary medical doctor for all other health related issues. Instructions: Wound Care (DC) Forms: [employer] (Setswana) Print Language: KAZAKH
--- NOTE | 2018-11-23 13:57 | CP.PCM.CON ---
History of Present Illness - History of Present Illness History of Present Illness: Podiatry consult note - Dr. Mixon 38F seen and evaluated in [facility] ED for right leg wound. Patient is well known to Dr. Mixon/Farnaz as she visits the [facility]. States she was not able to see Dr. Osei this week as she is on vacation for the month. States she has her dressings changes and was told to report to the [facility] ED for evaluation of her right leg wound. States she is in mild pain at her right leg. Denies any other symptoms and denies n/v/f/c/sob/cp. Has no other acute complaints at this time. PMHx: anemia, HTN, hypercholesterolemia, and diabetes PSHx: denies All: NKDA Past Patient History - Past Medical History & Family History Past Medical History?: Yes - Past Social History Smoking Status: Never Smoked - CARDIAC Hx Hypercholesterolemia: Yes Hx Hypertension: Yes - PULMONARY Hx Tuberculosis: No - NEUROLOGICAL Hx Seizures: No - HEENT Hx HEENT Problems: No - RENAL Hx Chronic Kidney Disease: No - ENDOCRINE/METABOLIC Hx Diabetes Mellitus Type 2: Yes - HEMATOLOGICAL/ONCOLOGICAL Hx Anemia: Yes - INTEGUMENTARY Hx Dermatological Problems: No - MUSCULOSKELETAL/RHEUMATOLOGICAL Hx Musculoskeletal Disorders: No Hx Falls: No - GASTROINTESTINAL Hx Gastrointestinal Disorders: Yes Hx Gastroesophageal Reflux: Yes Other/Comment: fibroid cyst - GENITOURINARY/GYNECOLOGICAL Hx Sexually Transmitted Disorders: No - PSYCHIATRIC Hx Psychophysiologic Disorder: No Hx Substance Use: No - SURGICAL HISTORY Hx Arthroscopy: Yes (left knee) Hx Orthopedic Surgery: Yes Other/Comment: bilateral knee surgery, bilateral upper eyelid surgery - ANESTHESIA Hx Anesthesia: Yes Hx Anesthesia Reactions: No Hx Malignant Hyperthermia: No Meds Home Medications: Home Medication List Medication Instructions Recorded Confirmed Type Permethrin 1% Kit [Nix Complete 59 ml TP ONCE #1 bottle 11/23/18 Rx Lice Elimination Kit 1%] Allergies/Adverse Reactions: Allergies Allergy/AdvReac Type Severity Reaction Status Date / Time No Known Allergies Allergy Verified 06/24/18 12:16 Physical Exam - Constitutional Appears: Non-toxic - Head Exam Head Exam: NORMOCEPHALIC - Extremities Exam Additional comments: RLE focused exam VASC: DP and PT pulses palpable; cap refill <3 seconds; edema to lower extremity present secondary to lymphedema and obesity DERM: superificial venous stasis ulceration noted to the anterior aspect of the leg, no clinical signs of infection, no drainage, no pus ORTHO: mild tenderness upon palpation of the right leg wound NEURO: gross and protective sensation intact - Neurological Exam Neurological exam: Alert, Oriented x3 - Psychiatric Exam Psychiatric exam: Normal Affect, Normal Mood Results - Vital Signs Recent Vital Signs: Last Vital Signs Temp 98.6 F 11/23/18 07:40 Pulse 88 11/23/18 07:40 Resp 20 11/23/18 07:40 BP 178/90 H 11/23/18 07:40 Pulse Ox 97 11/23/18 13:44 - Labs Result Diagrams: 11/23/18 09:15 11/23/18 09:15 Labs: Laboratory Results - last 24 hr 11/23/18 11/23/18 09:15 09:15 WBC 6.1 RBC 4.79 Hgb 12.2 Hct 38.9 MCV 81.4 MCH 25.6 L MCHC 31.4 L RDW 18.1 H Plt Count 230 MPV 9.0 Neut % (Auto) 62.8 Lymph % (Auto) 24.3 [place] % (Auto) 8.6 Eos % (Auto) 3.5 Baso % (Auto) 0.8 Neut # (Auto) 3.8 Lymph # (Auto) 1.5 [place] # (Auto) 0.5 Eos # (Auto) 0.2 Baso # (Auto) 0.0 Sodium 139 Potassium 5.0 Chloride 99 Carbon Dioxide 31 H Anion Gap 14 BUN 12 Creatinine 0.6 L Est GFR ( Amer) > 60 Est GFR (Non-Af Amer) > 60 Random Glucose 115 H Calcium 10.0 Assessment & Plan - Assessment and Plan (Free Text) Assessment: 38F with right leg venous stasis ulceration, non infected Plan: Patient seen and evaluated Discussed in detail with Dr. Mixon Dressed with allevyn pad after cleanse with sterile saline Instructed to visit the [facility] wound [facility] this week for treatment of wound, Dr. Mixon aware Educated on diabetic footcare Thank you for the consult - Date & Time Date: 11/23/18 Time: 14:00
[2018-11-23] MEDS ORDERED: Permethrin 1% Kit 59 ML BOTTLE TOP ONE (14:03)
[2018-11-23 21:02] VITALS: BP 147/97; PULSE 86; TEMP 97.9; O2SAT 98
== END 2018-11-23 13:58 | disposition home or self-care (01) ==
LOC: H.ER 07:36
DX: I87.311 Chronic venous hypertension (idiopathic) with ulcer of right lower extremity (principal); E11.9 Type 2 diabetes mellitus without complications; D64.9 Anemia, unspecified; E78.00 Pure hypercholesterolemia, unspecified; I10 Essential (primary) hypertension; Z79.82 Long term (current) use of aspirin; Z79.84 Long term (current) use of oral hypoglycemic drugs